=== PATIENT | female | born 1950 ===

== ENCOUNTER → 2019-02-19 | Outpatient (CLI) | payer OTHER ==
[2019-02-23 15:07] LABS: HPV 16 Negative (Negative); HPV 18 Negative (Negative)
[2019-02-23 18:48] LABS: HPV OTHER HR TYPES PositiveAR
== END | disposition home or self-care (01) ==
LOC: LAB SHORT 11:50 → LAB 11:50
PROVIDERS: Nurse Practitioner Women's Health
DX: Z12.4 Encounter for screening for malignant neoplasm of cervix (principal); Z91.89 Other specified personal risk factors, not elsewhere classified
CPT/HCPCS: 87624; 87625; G0123